=== PATIENT | male | born 1950 | race Caucasian/White ===

== ENCOUNTER 2021-03-03 12:31 | Outpatient (CLI) | payer MEDICARE, SELFPAY ==
--- NOTE | ~2021-03-03 | US_ITS ---
EXAMINATION: US soft tissue LE LT DATE: 03/03/2021 12:55 INDICATION: Left lower limb mass. TECHNIQUE: Multiple grayscale and Doppler ultrasound images of the left lower limb were obtained. COMPARISON: None FINDINGS: There is an 8.3 x 2.4 x 6.7 cm Webb's cyst in the patient's area of concern. IMPRESSION: 1. Large left-sided Webb's cyst. Reviewed, dictated and finalized at location A.
== END 2021-03-03 12:32 | disposition home or self-care (01) ==
PROVIDERS: PCP Family Medicine; Visit Provider Physician Assistant
DX: M71.22 Synovial cyst of popliteal space [Baker], left knee (principal)
CPT/HCPCS: 76882

== ENCOUNTER 2021-10-18 00:50 | Day surgery (SDC) | payer MEDICARE, SELFPAY ==
[2021-10-03 14:56] VITALS: BMI 38.5
[2021-10-18 06:58] VITALS: BP 136/70; PULSE 84; RESP 19; TEMP 36.6; O2SAT 96
[2021-10-18] MEDS: LACTATED RINGERS 1,000 ML 150 ML IV CONT (07:07)
--- NOTE | 2021-10-18 07:08 | WPDANESEPPF ---
Anes - Initial Pre Proc Eval Procedure: Operation Date: 10/18/21 08:00 Proposed Procedures p Screening Colonoscopy - Ton Maurice MD Date/Time: 10/18/21 07:08 Surgeon: Ton Maurice MD Pre Op Diagnosis: hx of colon polyps Patient Data Age: 70 Gender: M Height: 1.91 m Weight: 140.8 kg Last Vital Signs Temp 36.6 C 10/18/21 06:58 Pulse 84 10/18/21 06:58 Resp 19 10/18/21 06:58 BP 136/70 10/18/21 06:58 Pulse Ox 96 10/18/21 06:58 Allergies Allergy/AdvReac Type Severity Reaction Status Date / Time lisinopril Allergy Unknown Cough Verified 10/18/21 06:57 naproxen Allergy Unknown Rash Verified 10/18/21 06:57 Home Medications Medication Instructions Recorded Confirmed Type glucosamine HCl 1,500 mg tablet 1,500 mg PO DAILY 08/12/20 10/03/21 History rosuvastatin 5 mg tablet 5 mg PO DAILY #90 tablet 08/11/21 10/03/21 Rx tadalafil 10 mg tablet 10 mg PO DAILY PRN #90 tablet 08/11/21 10/03/21 Rx valsartan 160 1 tablet PO DAILY #90 tablet 08/11/21 10/03/21 Rx mg-hydrochlorothiazide 12.5 mg tablet ibuprofen [Advil] 200 mg PO BID 10/03/21 10/03/21 History Patient hx anesthesia problems: none Family hx anesthesia problems: none Results Review: All pre-operative results and documents have been reviewed as part of the pre-operative evaluation. [facility] Past Medical History Medical History BPH (benign prostatic hyperplasia) Erectile dysfunction Hypertension Mixed hyperlipidemia Osteoarthritis of knees, bilateral Surgical History Surgical History H/O exploratory laparotomy History of incisional hernia repair Family History Family History Mother Carcinoma of colon Family history of heart disease in male family member before age 55 Family history of malignant neoplasm of breast in first degree relative Family history of cardiovascular disease, Onset Age: 68 Father Family history of malignant neoplasm, Onset Age: 78 Family history of malignant melanoma Malignant neoplasm of prostate Social History Social History Social History: Smoking packs per day: 2 Smoking cigarettes per day: 40.0 Years smoked: 10 Smoking pack-years: 20.00 Smoking status: Former smoker Tobacco type: cigarettes Second hand tobacco smoke exposure: No Smoking end date: 08/27/75 Alcohol intake: current Drinks per week: 4 Substance use: never Substance use type: does not use Gender identity (if verbalized by the patient): Male Sexual Orientation (if Verbalized by the Patient): Straight or Heterosexual Anes - Eval Final PreProcedure Day of Procedure 10/18/21 07:08 Patient weight: obese Heart: regular rate and rhythm Lungs: decreased breath sounds Airway: Mallampati scale class II Neurological: alert and oriented Last oral intake: >/= 8 hours ASA classification: III Emergent: no Anesthetic plan: proceed Anesthesia type and monitoring: general GIVS and standard monitoring Results Review: All pre-operative results and documents have been reviewed as part of the pre-operative evaluation. Informed Consent: The patient's anesthetic plan and its attendant risks and benefits were discussed with the patient/family/POA. Questions were solicited and answers provided to the satisfaction of the patient/family/POA.
--- NOTE | 2021-10-18 08:05 | PM.HPGS ---
History of Present Illness History of Present Illness Consent: Risks, benefits, and alternatives have been discussed and questions answered. Patient agrees to proceed with procedure. Chief complaint: hx of colon polyps Narrative: Aristeo Huizar is a 70 year old male with colon polyp in 2017 Review of Systems Constitutional: Constitutional: Denies headache(s) and Denies weakness Eyes: Eyes: Denies blurry vision ENT: Reports Normal hearing present, Denies headache(s) and Denies neck pain Cardiovascular: Cardiovascular: Denies chest pain and Denies dyspnea Respiratory: Respiratory: Denies dyspnea Gastrointestinal: Gastrointestinal: Reports no additional gastrointestinal complaints Genitourinary: Genitourinary: Denies dysuria Musculoskeletal: Musculoskeletal: Denies neck pain Integumentary/Breasts: Skin/Breast: Denies dry skin Neurologic: Reports Normal hearing present, Denies headache(s) and Denies weakness Psychiatric: Psychiatric: Denies anxiety Endocrine: Endocrine: Denies change in body appearance Hematologic/Lymphatic: Hematologic/Lymphatic: Denies easy bleeding Allergic/Immunologic: Allergic/Immunologic: Denies urticaria PMFSH Past Medical History Medical History BPH (benign prostatic hyperplasia) Erectile dysfunction Hypertension Mixed hyperlipidemia Osteoarthritis of knees, bilateral Surgical History Surgical History H/O exploratory laparotomy History of incisional hernia repair Family History Family History Mother Carcinoma of colon Family history of heart disease in male family member before age 55 Family history of malignant neoplasm of breast in first degree relative Family history of cardiovascular disease, Onset Age: 68 Father Family history of malignant neoplasm, Onset Age: 78 Family history of malignant melanoma Malignant neoplasm of prostate Social History Social History Social History: Smoking packs per day: 2 Smoking cigarettes per day: 40.0 Years smoked: 10 Smoking pack-years: 20.00 Smoking status: Former smoker Tobacco type: cigarettes Second hand tobacco smoke exposure: No Smoking end date: 08/27/75 Alcohol intake: current Drinks per week: 4 Substance use: never Substance use type: does not use Gender identity (if verbalized by the patient): Male Sexual Orientation (if Verbalized by the Patient): Straight or Heterosexual Meds Home Medications and Allergies Home Medications Medication Instructions Recorded Confirmed Type glucosamine HCl 1,500 mg tablet 1,500 mg PO DAILY 08/12/20 10/03/21 History rosuvastatin 5 mg tablet 5 mg PO DAILY #90 tablet 08/11/21 10/03/21 Rx tadalafil 10 mg tablet 10 mg PO DAILY PRN #90 tablet 08/11/21 10/03/21 Rx valsartan 160 1 tablet PO DAILY #90 tablet 08/11/21 10/03/21 Rx mg-hydrochlorothiazide 12.5 mg tablet ibuprofen [Advil] 200 mg PO BID 10/03/21 10/03/21 History Allergies Allergy/AdvReac Type Severity Reaction Status Date / Time lisinopril Allergy Unknown Cough Verified 10/18/21 06:57 naproxen Allergy Unknown Rash Verified 10/18/21 06:57 Vital Signs Vital Signs - 24 hr 10/18/21 06:58 Temperature 97.9 F Pulse Rate 84 Respiratory Rate 19 Blood Pressure 136/70 Pulse Oximetry 96 Exam Const: General: comfortable and no acute distress HENMT: General nose exam: Normal nares present Eyes: General: appearance normal, both eyes and all related structures Neck: Neck: no JVD Resp: Auscultation: clear to auscultation bilaterally Cardio: Rate: regular rate Rhythm: regular rhythm GI: Inspection: non-distended GI Palp: Yes Soft to palpation Skin: General skin exam: normal color Neuro: General: gait normal Speech: norm
[2021-10-18 08:32] VITALS: BP 117/58; PULSE 70; RESP 18; O2SAT 98
[2021-10-18 08:42] VITALS: BP 123/76; PULSE 62; RESP 20; O2SAT 98
[2021-10-18 08:52] VITALS: BP 124/72; PULSE 64; RESP 20; O2SAT 99
== END 2021-10-18 09:06 | disposition home or self-care (01) ==
PROVIDERS: PCP Family Medicine; Visit Provider Internal Medicine Gastroenterology
PROC: 0DJD8ZZ Inspection of Lower Intestinal Tract, Via Natural or Artificial Opening Endoscopic (ICD-10-PCS; CPT 45378; principal; 2021-10-18 08:00)
DX: Z12.11 Encounter for screening for malignant neoplasm of colon (principal); D12.2 Benign neoplasm of ascending colon; K57.30 Diverticulosis of large intestine without perforation or abscess without bleeding; K64.8 Other hemorrhoids; I10 Essential (primary) hypertension; E78.2 Mixed hyperlipidemia; N40.0 Benign prostatic hyperplasia without lower urinary tract symptoms; Z87.891 Personal history of nicotine dependence; E66.9 Obesity, unspecified; Z68.38 Body mass index [BMI] 38.0-38.9, adult
CPT/HCPCS: 45380; 88305; J2704; J7120

== ENCOUNTER 2022-05-24 10:09 | Outpatient (CLI) | payer MEDICARE, SELFPAY ==
[2022-05-24 10:44] LABS: Hemoglobin 14.8 g/dL (14.0-18.0)
--- NOTE | 2022-05-24 10:48 | ECG_ITS ---
Measurements Intervals [place] Rate: 60 P: 40 OR: 176 QRS: -54 QRSD: 145 T: -4 QT: 451 QTc: 453 Interpretive Statements SINUS RHYTHM LEFT AXIS DEVIATION DELAYED PRECORDIAL R/S TRANSITION INTRAVENTRICULAR CONDUCTION DELAY MINIMAL Q WAVES- HIGH LATERAL LEADS BORDERLINE T WAVE ABNORMALITY- INFERIOR LEADS BORDERLINE ECG NO PREVIOUS ECG AVAILABLE FOR COMPARISON Electronically Signed On 05-24-2022 11:34:22 CDT by Rebel Mckeon D.O.
[2022-05-24 11:01] LABS: Albumin Level 4.6 g/dL (3.5-5.1); Estimated Glomerular Filt Rate > 60; Glucose 99 mg/dL (65-110)
[2022-05-24 12:05] LABS: Urine Cotinine NEGATIVE
[2022-05-24 12:15] LABS: Hemoglobin A1C 5.2 % (<5.7)
== END 2022-05-24 10:10 | disposition home or self-care (01) ==
LOC: ANHLAB 10:16
PROVIDERS: PCP Family Medicine; Visit Provider Orthopaedic Surgery
DX: M17.12 Unilateral primary osteoarthritis, left knee (principal); E78.2 Mixed hyperlipidemia; I10 Essential (primary) hypertension; Z79.899 Other long term (current) drug therapy; Z01.818 Encounter for other preprocedural examination; I45.9 Conduction disorder, unspecified
CPT/HCPCS: 80307; 82040; 82565; 82947; 83036; 85014; 85018; 93005

== ENCOUNTER 2022-05-29 14:36 | Outpatient (CLI) | payer MEDICARE, SELFPAY ==
--- NOTE | ~2022-05-29 | CT_ITS ---
EXAMINATION: CT LE LT wo con DATE: 05/29/2022 15:05 INDICATION: Left knee osteoarthritis. TECHNIQUE: Computed tomography (CT) of the left lower limb was performed without intravenous contrast . Automated exposure control and iterative reconstruction technique were employed. The dose-length pr oduct was 1797.58 mGy-cm. COMPARISON: Left knee radiographs 03/20/2022 FINDINGS: Bone alignment is normal. No fracture. The left hip joint demonstrates moderate osteoarthri tis. The left knee demonstrates severe osteoarthritis of the lateral compartment and moderate osteoar thritis of the medial and patellofemoral compartments. There is a large Webb's cyst. There is a smal l knee joint effusion. IMPRESSION: 1. Severe left knee osteoarthritis. 2. Small left knee joint effusion. 3. Large left-sided Webb's cyst. 4. Moderate left hip osteoarthritis. Reviewed, dictated and finalized at location B.
== END 2022-05-29 14:37 | disposition home or self-care (01) ==
PROVIDERS: PCP Family Medicine; Visit Provider Orthopaedic Surgery
DX: M17.12 Unilateral primary osteoarthritis, left knee (principal); M25.462 Effusion, left knee; M71.22 Synovial cyst of popliteal space [Baker], left knee; M16.12 Unilateral primary osteoarthritis, left hip
CPT/HCPCS: 73700

== ENCOUNTER 2022-06-19 13:48 | Outpatient (CLI) | payer MEDICARE, SELFPAY ==
[2022-06-19 15:28] LABS: Basophils Percent Auto 0.5 % (0.2-1.2); Eosinophils Absolute Auto 0.1 K/mm3 (0-0.3); Hematocrit 40.6 % (42.0-52.0); Hemoglobin 14.2 g/dL (14.0-18.0); Immature Granulocyte Absolute 0.02 K/mm3 (0.00-0.031); Immature Granulocyte Percent A 0.3 % (0-0.5); Lymphocytes Absolute Auto 1.72 K/mm3 (0.9-3.2); Lymphocytes Percent Auto 21.9 % (18.3-44.2); Mean Corpuscular Hemoglobin 32.3 pg (26-34); Mean Corpuscular Volume 92.3 fl (80-100); Mean Platelet Volume 9.2 fl (7.4-10.4); Monocytes Absolute Auto 0.8 K/mm3 (0.1-0.6); Monocytes Percent Auto 9.6 % (2.6-8.5); Neutrophils Absolute Auto 5.2 K/mm3 (1.3-6.7); Neutrophils Percent Auto 66.7 % (45.5-73.1); Platelet Count Result 198 k/mm3 (150-375); Red Cell Distribution Width 12.3 % (11.5-14.5); White Blood Count 7.8 K/mm3 (4.5-10.0)
[2022-06-19 15:41] LABS: Anion Gap 12 mmol/L (8-16); Blood Urea Nitrogen 14 mg/dL (9-20); Calcium 8.8 mg/dL (8.4-10.2); Carbon Dioxide 27 mmol/L (22-30); Chloride 99 mmol/L (98-107); Estimated Glomerular Filt Rate > 60; Glucose 97 mg/dL (65-110); Potassium 3.6 mmol/L (3.4-5.0); Sodium 138 mmol/L (137-145)
== END 2022-06-19 13:49 | disposition home or self-care (01) ==
LOC: ANHSURGERY 13:53
PROVIDERS: Anesthesiology; PCP Family Medicine; Visit Provider Orthopaedic Surgery
DX: M17.12 Unilateral primary osteoarthritis, left knee (principal); Z79.899 Other long term (current) drug therapy; Z01.818 Encounter for other preprocedural examination
CPT/HCPCS: 36415; 80048; 85025; 87081

== ENCOUNTER 2022-07-18 01:22 | Day surgery (SDC) | payer MEDICARE, SELFPAY ==
--- NOTE | 2022-06-19 13:47 | PC.NURSE ---
PRE-OP INSTRUCTIONS, PLEASE READ CAREFULLY Report to the Outpatient Waiting Room, entrance under the green pavilion located off [facility], at time _0830_ on date _07/18/22_. Planned Procedure Time: _1030_. PACK A SMALL OVERNIGHT BAG AND LEAVE IN THE CAR Time changes happen often and if your time is changed the preop area will call you the afternoon before. - You and your visitor will be asked to self-screen and do not enter if you have any COVID symptoms. - We encourage only one visitor and NO visitors under age 16 are allowed at this time. Your visitor will receive communication by the phone number that is given day of service. - The patient visitor is requested to social distance or may leave the building when not with patient due to restrictions. - A mask is required within the hospital. -VISITING HOURS 8AM-8PM Patients may have clear liquids (water, carbonated beverages, clear teas, apple juice) until 3 hours prior to surgery (0730 AM) with a maximum of 20 ounces. - No food from midnight until time of surgery Take the following medications with a SIP of water the morning of surgery: _TYLENOL IF NEEDED_ Medications to discontinue per ANESTHESIA - _GLUCOSAMINE 3 DAYS PRIOR TO SURGERY, Date to take last dose 07/14/22_ Please no make-up, nail sinhala, hairspray, perfume, deodorant, or body powder the day of surgery. No jewelry (including any body piercings) or valuables the day of surgery, leave them at home. Please take a shower or bath the night before, or the morning of, surgery with an antibacterial soap. Wear comfortable, loose fitting clothing. - Jewelry must be removed prior to entering the operating room. Rings and piercings that are not removed may be cut off. - The hospital will not accept responsibility for valuables. - Please leave all valuables, including medications, at home the day of surgery. If you are going home after surgery, a licensed bung driver must drive you home. - NO public transportation without another adult. - We recommend that an adult stay with you for 24 hours following discharge. - We also recommend that you do not drive, make important decision, drink alcoholic beverages, or take any drugs that were not prescribed by your health care provider for at least 24 hours after your discharge time. Follow any additional instructions given to you from your surgeon. TOTAL JOINT CLASS 06/28/22 @ 1000 AM, [facility] ENTRANCE #2 - LOWER LEVEL If you or anyone in your household have experienced Covid symptoms in the past week, please notify your surgeon or the nurse liaison at the phone number below for possible testing. Instructions given to ____PT and asked if any additional questions and then verbalized understanding. Patient advised to call surgeon office or pre surgery nurse liaison [phone] if any additional questions.
[2022-06-19 14:04] VITALS: BP 130/72; PULSE 76; RESP 20; TEMP 37.1; O2SAT 97; BMI 38.2
--- NOTE | 2022-07-17 12:49 | WPDANESEPPF ---
Anes - Initial Pre Proc Eval Procedure: Operation Date: 07/18/22 07:30 Proposed Procedures p Left Custom Total Knee Arthroplasty - William Mcclellan MD Date/Time: 07/17/22 12:49 Surgeon: William Mcclellan MD Pre Op Diagnosis: primary OA left knee Patient Data Age: 71 Gender: M Height: 1.88 m Weight: 135.3 kg Last Vital Signs Temp 37.1 C 06/19/22 14:04 Pulse 76 06/19/22 14:04 Resp 20 06/19/22 14:04 BP 130/72 06/19/22 14:04 Pulse Ox 97 06/19/22 14:04 O2 Del Method Room Air 06/19/22 14:04 Allergies Allergy/AdvReac Type Severity Reaction Status Date / Time lisinopril Allergy Unknown Cough Verified 07/18/22 06:15 naproxen Allergy Unknown Rash Verified 07/18/22 06:15 Home Medications Medication Instructions Recorded Confirmed Type glucosamine HCl 1,500 mg tablet 1,500 mg PO DAILY 08/12/20 07/18/22 History tadalafil 10 mg tablet 10 mg PO DAILY PRN sexual activity 08/11/21 07/18/22 Rx #90 tabs acetaminophen 325 mg capsule 500 mg PO Q6H PRN Pain 03/20/22 07/18/22 History (Tylenol) rosuvastatin 5 mg tablet See Rx Instructions .Route 05/05/22 07/18/22 Rx .COMPLEX #90 tabs valsartan 160 1 tablet PO DAILY #90 tabs 05/09/22 07/18/22 Rx mg-hydrochlorothiazide 12.5 mg tablet ECG: Date of Service: 05/24/22 Procedure(s): CA 12 lead EKG Accession Number(s): [id number] cc: ~ ? Measurements Intervals? [place]? Rate: ? 60 ? P:? 40 ME: ? 176? QRS:? -54 QRSD: ? 145? T:? -4 QT: ? 451? QTc:? 453? Interpretive Statements SINUS RHYTHM LEFT AXIS DEVIATION DELAYED PRECORDIAL R/S TRANSITION INTRAVENTRICULAR CONDUCTION DELAY MINIMAL Q WAVES- HIGH LATERAL LEADS BORDERLINE T WAVE ABNORMALITY- INFERIOR LEADS BORDERLINE ECG NO PREVIOUS ECG AVAILABLE FOR COMPARISON Electronically Signed On 05-24-2022 11:34:22 CDT by Rebel Mckeon D.O. Patient hx anesthesia problems: none Family hx anesthesia problems: none Results Review: All pre-operative results and documents have been reviewed as part of the pre-operative evaluation. [facility] Past Medical History Medical History (Updated 07/17/22 @ 12:51 by Martinez Augustine MD) BPH (benign prostatic hyperplasia) Erectile dysfunction Hypertension Mixed hyperlipidemia Obesity Osteoarthritis of knees, bilateral Primary osteoarthritis of left knee Venous insufficiency (chronic) (peripheral) Surgical History Surgical History H/O exploratory laparotomy History of incisional hernia repair Family History Family History Mother Carcinoma of colon Family history of heart disease in male family member before age 55 Family history of malignant neoplasm of breast in first degree relative Family history of cardiovascular disease, Onset Age: 68 Father Family history of malignant neoplasm, Onset Age: 78 Family history of malignant melanoma Malignant neoplasm of prostate Social History Social History (Updated 06/28/22 @ 13:25 by Monet Landaverde MA) Social History: Smoking packs per day: 2 Smoking cigarettes per day: 40.0 Years smoked: 10 Smoking pack-years: 20.00 Smoking status: Former smoker Tobacco type: cigarettes Second hand tobacco smoke exposure: No Smoking end date: 08/27/75 Additional smoking assessment comments: PT STATES QUIT SMOKING IN THE 70'S), DENIES ALL FORMS OF TOBACCO USE Alcohol intake: current Drinks per week: 4 Substance use: never Substance use type: does not use Lack of Transportation: No Lack of Food: Never True Current Housing: I Have Housing Concerned About Future H
--- NOTE | 2022-07-17 12:51 | WPDANESPNB ---
Anes - Peripheral Nerve Block Date/Time: 07/17/22 12:51 I have discussed with the patient/family/POA the placement of a peripheral nerve block for post-operative pain management, including associated risks, benefits, complications, and side effects. Alternative methods of post-operative analgesia were detailed. Questions were solicited and answers provided to the satisfaction of the patient/family/POA. Time-Out: A pre-procedural Time-Out was completed immediately before starting the procedure and confirmed: Patient Identification, Site, Procedure, Patient Position and the Availability of Requisite Equipment. Clinical Indications: Acute post-operative pain management requested by the operative surgeon. Nerve Block Insertion Note Anes-nerve block: adductor canal left Patient position: supine Skin prep: chlorhexidine Needle: 22 gauge, stimulating, insulated echogenic needle. Needle length: 80 mm Technique: ultrasound Technique comment: in plane Injectate: bupivacaine 0.25% with epi 5 mcg/ml (30cc) Observations: tolerated well Complications: none Procedure start time:: 725 Procedure end time:: 730
[2022-07-18] VITALS (14 sets, daily range): BP systolic 123–153; BP diastolic 59–82; PULSE 67–94; RESP 12–20; TEMP 36.2–37.1; O2SAT 95–100
--- NOTE | ~2022-07-18 | XR_ITS ---
EXAMINATION: XR knee LT 2V DATE: 07/18/2022 10:52 SHEETER HELPER INDICATION: Left total knee arthroplasty TECHNIQUE: 2 views left knee FINDINGS: There is a left total knee arthroplasty in expected position. Subcutaneous gas with fluid and air in the joint are consistent with recent surgery. No evidence of periprosthetic fracture. IMPRESSION: 1. Recent left total knee arthroplasty. Reviewed, dictated and finalized at location B. TER HELPER
[2022-07-18] MEDS: LACTATED RINGERS 1,000 ML 30 ML IV CONT ×2 (06:40→10:15)
[2022-07-18] MEDS: ACETAMINOPHEN 500 MG TABLET 1000 MG PO (06:46)
[2022-07-18] MEDS: TRANEXAMIC ACID 1,000MG/ISO100 1,000 MG/100 ML BAG 200 MG IVPB (07:12)
--- NOTE | 2022-07-18 07:20 | WPDHPUPDATE1 ---
History and Physical Update Update Date/Time: 07/18/22 07:20 History and Physical has been reviewed, including an updated exam of the patient. There are NO changes in the patient's condition. Risks, benefits, and alternatives have been discussed and questions answered. Patient agrees to proceed with procedure.
[2022-07-18] MEDS: ceFAZolin 3 GM/D5W 100 ML 100 ML IVPB (07:45)
[2022-07-18] MEDS: GENTAMICIN BONE CEMENT REFOBACIN 1 EACH TOPICAL (08:14)
--- NOTE | 2022-07-18 10:08 | P.OP_ITS ---
Procedure Note - Detailed Date of Procedure 07/18/22 Pre-op Diagnosis primary OA left knee Post-op Diagnosis Same Procedure Performed Total knee arthroplasty, left. Surgeon William Mcclellan MD Contact Center Representative Cha Kelley PA-C Anesthesia General and Regional (Subsartorial block.) Findings Mild valgus deformity. Large stature. Moderate synovitis.. Good bone quality. No release required. Imprint PS semi-custom. Description of Procedure Preoperative antibiotics were given. The limb was prepped and draped in the usual sterile fashion with a well-padded tourniquet high on the thigh. The limb was exsanguinated and the tourniquet inflated to 300 mmHg. A longitudinal incision was created just medial to the patella. A trivector approach to the knee was performed. Arthrotomy was taken down through the joint capsule. No significant releases were initially taken. The femur was exposed and the F1 jig was applied. The coring tool was used to remove the cartilage for the F2 jig to sit flush with the bone. The jig was pinned and the distal cut carefully taken. Caliper measurements confirmed appropriate bony resections according to the preoperative templated plan. The F4 cutting jig for the femur was applied, at the standard rotation. The AP and anterior chamfer cuts were taken. The F5 jig was applied and the posterior chamfer cuts were taken, followed by the box cut. The PCL was released. The tibia was prepared using the T1 jig, after removing cartilage for the jig contact points. Proper alignment was checked with the alignment otis. The tibia was cut using the T1u guide. Gap balancing was performed. Gap measurements were taken and the knee was trialed. Excellent alignment and soft tissue balancing was confirmed. The posterior cruciate ligament was recessed along the proximal tibia. The patella was cut for resurfacing. Three lug holes were drilled. Meniscal remnants were removed. The trial components were assembled. Excellent range of motion and proper soft tissue balancing were confirmed throughout the full range of motion. Patellar tracking was excellent. The knee was copiously irrigated periodically throughout the procedure. The real implants were cemented into position. Excess cement was carefully removed. The wound was closed in layers with interrupted #1 Vicryl suture, 2-0 strata fix suture, 0 strata fix suture, 2-0 strata fix suture. Steri-Strips placed on the skin with the knee flexed. Sterile bulky dressing applied. The patient was brought to the recovery room in stable condition. There were no complications. Physician senior assistant manager, Cha Kelley PA-C, required for surgery; including patient positioning, draping, tissue retraction, maintaining instrument position, cement removal, wound closure, and dressing placement. Implants Conformis Imprint semi custom total knee arthroplasty. Size 7. Cemented. Posterior stabilized. 8mm insert. 38 mm round patella. Estimated Blood Loss 150 Drains No Complications No immediate complications Condition Stable Disposition PACU [facility] Billing Surgery - Charge Forward: Surgery Billing
[2022-07-18] MEDS: fentaNYL CITRATE INJ (*CRX) 100 MCG/2 ML VIAL 25 MCG IV PUSH ×4 (10:34→10:59)
--- NOTE | 2022-07-18 12:15 | ADMGEN ---
This patient, Aristeo Huizar, was admitted to 2 Medical Room 259-01. Patient/family oriented to hospital policies and general routines including ID bracelet, bed and alarms, visiting hours, pain management, procedures, bathroom and other care routines, personal items, smoking policy, room service/diet, and visiting hours. Information on how to activate the Rapid Response Team has been discussed. Patient/Family are encouraged to report perceived risks to care and to ask questions if they do not understand what they are told or what they should do.
[2022-07-18] MEDS: oxyCODONE HCL (*CRX) 5 MG TAB IR 10 MG PO (14:23)
[2022-07-18] MEDS: ceFAZolin 2 GM/D5W 50 ML 2 GM/50 ML BAG IVPB (15:12)
[2022-07-18] MEDS: SENNA/DOCUSATE SODIUM TABLET 2 TAB PO (16:04)
[2022-07-18] MEDS: ASPIRIN 81 MG ENTERIC TABLET PO (16:05)
[2022-07-18] MEDS: MELOXICAM 7.5 MG TABLET PO (16:05)
[2022-07-18] MEDS: FAMOTIDINE 20 MG TABLET PO (21:49)
[2022-07-18] MEDS: oxyCODONE HCL (*CRX) 5 MG TAB IR PO (22:55)
[2022-07-19 01:02] VITALS: BP 124/59; PULSE 73; RESP 16; TEMP 36.6; O2SAT 97
[2022-07-19] MEDS: ceFAZolin 2 GM/D5W 50 ML 2 GM/50 ML BAG IVPB ×2 (01:05→09:19)
[2022-07-19 06:04] LABS: Basophils Percent Auto 0.2 % (0.2-1.2); Hematocrit 35.8 % (42.0-52.0); Hemoglobin 12.2 g/dL (14.0-18.0); Immature Granulocyte Absolute 0.06 K/mm3 (0.00-0.031); Immature Granulocyte Percent A 0.5 % (0-0.5); Lymphocytes Absolute Auto 1.06 K/mm3 (0.9-3.2); Lymphocytes Percent Auto 8.8 % (18.3-44.2); Mean Corpuscular HGB Conc 34.1 g/dl (32-36); Mean Corpuscular Hemoglobin 32.9 pg (26-34); Mean Corpuscular Volume 96.5 fl (80-100); Mean Platelet Volume 9.6 fl (7.4-10.4); Monocytes Absolute Auto 1.6 K/mm3 (0.1-0.6); Monocytes Percent Auto 13.6 % (2.6-8.5); Neutrophils Absolute Auto 9.2 K/mm3 (1.3-6.7); Neutrophils Percent Auto 76.9 % (45.5-73.1); Platelet Count Result 188 k/mm3 (150-375); Red Blood Count 3.71 M/mm3 (4.6-6.20); Red Cell Distribution Width 12.1 % (11.5-14.5)
[2022-07-19 06:18] LABS: Anion Gap 10 mmol/L (8-16); Blood Urea Nitrogen 15 mg/dL (9-20); Calcium 8.1 mg/dL (8.4-10.2); Carbon Dioxide 24 mmol/L (22-30); Chloride 101 mmol/L (98-107); Estimated CRCL calculation 141 ml/min; Estimated Glomerular Filt Rate > 60; Glucose 133 mg/dL (65-110); Potassium 3.6 mmol/L (3.4-5.0); Sodium 135 mmol/L (137-145)
[2022-07-19 06:31] VITALS: BP 127/56; PULSE 70; RESP 14; TEMP 36.4; O2SAT 97
[2022-07-19] MEDS: oxyCODONE HCL (*CRX) 5 MG TAB IR 10 MG PO (07:35)
[2022-07-19] MEDS: ASPIRIN 81 MG ENTERIC TABLET PO (09:20)
[2022-07-19] MEDS: hydroCHLOROthiazide 12.5 MG CAPSULE PO (09:20)
[2022-07-19] MEDS: predniSONE 5 MG TABLET PO (09:20)
[2022-07-19] MEDS: SENNA/DOCUSATE SODIUM TABLET 2 TAB PO (09:20)
[2022-07-19] MEDS: MELOXICAM 7.5 MG TABLET PO (09:21)
[2022-07-19] MEDS: VALSARTAN 160 MG TABLET PO (09:21)
[2022-07-19] MEDS: polyethylene glycoL 3350 17 GM POWD.PACK PO (09:21)
[2022-07-19] MEDS: ROSUVASTATIN 5 MG TABLET PO (09:21)
[2022-07-19] MEDS: FAMOTIDINE 20 MG TABLET PO (09:21)
--- NOTE | 2022-07-19 09:47 | PM.DS ---
DS: Admitting Diagnosis Discharge Date 07/19/22 Admitting Diagnosis OA knee Left DS: Discharge Diagnosis Discharge Diagnosis (1) Status post total left knee replacement: Code(s): Z96.652 - Presence of left artificial knee joint Status: Acute Assessment and Plan: Postop day 1: Left total knee arthroplasty. Patient tolerated procedure well. No complications. Pain manageable with pain medication. No numbness or tingling. We had a lengthy discussion regarding postoperative wound care, limitations, expectations, and exercises. Patient shows good understanding. He has had initial physical therapy and is tolerating it well. DVT prophylaxis: 81 mg baby aspirin b.i.d. for 14 days. Pain medication: Percocet. Meloxicam. Prednisone. Patient has followup appointment with Dr. Mcclellan in 3 weeks. DS: Summary Hospital Course Reason for hospitalization: Total knee arthroplasty Hospital Course: Patient tolerated procedure well. Has had initial PT/OT. Status at Discharge Functional status at discharge: uses cane/walker Overall status at discharge: patient is progressing back to baseline Time Spent with Patient Time attestation: Total time spent providing and/or coordinating discharge services: Exam Narrative: Overweight 71 y/o male. Resting comfortably in chair. Alert and oriented x3. No acute distress. Wearing compression socks bilaterally. Dressing intact without drainage. Moderate swelling. No ecchymosis. No erythema. No hematoma. Range of motion limited due to pain. Calf nontender. Neurologic status intact. No varicosities. Distal pulses palpable. DS: Data Data Completed and Pending Labs on day of discharge: Labs from last 24 hours 07/19/22 07/19/22 05:26 05:26 WBC 12.0 H RBC 3.71 L Hgb 12.2 L Hct 35.8 L MCV 96.5 MCH 32.9 MCHC 34.1 RDW 12.1 Plt Count 188 MPV 9.6 Immature Gran % (Auto) 0.5 Neut % (Auto) 76.9 H Lymph % (Auto) 8.8 L [place] % (Auto) 13.6 H Eos % (Auto) 0.0 Baso % (Auto) 0.2 Lymph # (Auto) 1.06 [place] # (Auto) 1.6 H Eos # (Auto) 0.0 Baso # (Auto) 0.0 Abs Immat Gran (auto) 0.06 H Absolute Neuts (auto) 9.2 H Absolute Nucleated RBC 0.0 Nucleated RBC % 0.0 Sodium 135 L Potassium 3.6 Chloride 101 Carbon Dioxide 24 Anion Gap 10 BUN 15 Creatinine 0.60 L Estim Creat Clear Calc 141 Estimated GFR > 60 Glucose 133 H Calcium 8.1 L Discharge Plan Discharge Patient Disposition: Home, Self-Care Discharge Instructions: See green instructions sheets Patient Instructions: Joint Replacement Surgery (DC), Knee Replacement (DC) Stand Alone Forms: General Discharge Instructions Follow-up/Referrals: Cha Kelley PA [Physician Position Classifier] - Discharge Medications: New meloxicam 15 mg tablet 15 mg PO DAILY Qty: 30 0RF Rx Instructions: Cut in half. Take 1/2 in morning and 1/2 at night. Take with food. Stop if stomach upset. prednisone 5 mg tablet 5 mg PO DAILY 21 Days Qty: 21 0RF aspirin 81 mg tablet,delayed release (DR/EC) 81 mg PO BID 14 Days Qty: 28 0RF oxycodone-acetaminophen 5-325 mg tablet 1 - 2 tablet PO Q4-6H MDD 6 PRN (Reason: pain) Qty: 30 0RF Continued glucosamine HCl 1,500 mg tablet 1,500 mg PO DAILY Rx Instructions: administer with a meal tadalafil 10 mg tablet 10 mg PO DAILY PRN (Reason: sexual activity) Qty: 90 1RF Rx Instructions: administer approximately 30min before sexual activity; do not use more than 1 dose per 24hrs acetaminophen [Tylenol] 325 mg capsule 500 mg PO Q6H PRN (Reason: Pain) rosuvastatin 5 mg tablet See Rx Instructions .ROUTE .COMPLEX Qty: 90 1RF Dose Instruction: Take 1 tablet by mouth once daily Rx Instructions: Take 1 tablet by mouth once daily valsartan-hydrochlorothiazide 160-12.5 mg tablet 1 tablet PO DAILY Qty: 90 1RF
[2022-07-19 10:49] VITALS: BP 124/57; PULSE 69; RESP 16; TEMP 36.9; O2SAT 93
[2022-07-19] MEDS: oxyCODONE HCL (*CRX) 5 MG TAB IR PO (12:34)
== END 2022-07-19 12:36 | disposition home or self-care (01) ==
LOC: ANHSURGERY 05:59 → ANH2MED 11:46
PROVIDERS: Physician Assistant Surgical; PCP Family Medicine; Visit Provider Orthopaedic Surgery
PROC: (CPT 27447; principal; 2022-07-18 07:30)
DX: M17.12 Unilateral primary osteoarthritis, left knee (principal); M65.862 Other synovitis and tenosynovitis, left lower leg; G89.18 Other acute postprocedural pain; I10 Essential (primary) hypertension; E78.2 Mixed hyperlipidemia; I87.2 Venous insufficiency (chronic) (peripheral); N40.0 Benign prostatic hyperplasia without lower urinary tract symptoms; E66.9 Obesity, unspecified; Z68.38 Body mass index [BMI] 38.0-38.9, adult; Z87.891 Personal history of nicotine dependence
CPT/HCPCS: 27447; 64447; 36415; 73560; 80048; 85025; 86850; 86900; 86901; 97110; 97116; 97161; 97165; 97530; 97535; A9270; C1713; C1776; J0131; J0171; J0690; J1100; J1170; J2250; J2270; J2405; J2704; J2795; J3010; J7120; J7512

== ENCOUNTER 2023-05-28 10:33 | Outpatient (CLI) | payer MEDICARE, SELFPAY ==
--- NOTE | ~2023-05-28 | CT_ITS ---
EXAMINATION: CT LE RT wo con DATE: 05/28/2023 11:26 INDICATION: Right knee osteoarthritis. Preop planning. TECHNIQUE: Computed tomography (CT) of the right lower limb was performed without intravenous contras t. Automated exposure control and iterative reconstruction technique were employed. The dose-length p roduct was 1959.34 mGy-cm. COMPARISON: Right knee radiographs 01/31/23 FINDINGS: The right hip joint is not included. Right knee demonstrates severe osteoarthritis of the m edial and patellofemoral compartments and mild osteoarthritis of the lateral compartment. There is a small knee joint effusion. Vascular calcifications are noted. IMPRESSION: 1. Severe right knee osteoarthritis. 2. Small right knee joint effusion. 3. Right hip joint not included. Reviewed, dictated and finalized at location E.
== END 2023-05-28 10:34 | disposition home or self-care (01) ==
LOC: ANHIMG 10:35
PROVIDERS: PCP Family Medicine; Visit Provider Orthopaedic Surgery
DX: M17.11 Unilateral primary osteoarthritis, right knee (principal); M25.461 Effusion, right knee
CPT/HCPCS: 73700

== ENCOUNTER 2023-05-31 10:26 | Outpatient (CLI) | payer MEDICARE, SELFPAY ==
--- NOTE | 2023-05-31 11:00 | ECG_ITS ---
Measurements Intervals [place] Rate: 72 P: 30 CO: 203 QRS: -50 QRSD: 153 T: 20 QT: 428 QTc: 470 Interpretive Statements SINUS RHYTHM WITH MARKED SINUS ARRHYTHMIA INTRAVENTRICULAR CONDUCTION DELAY [130+ ms QRS DURATION] COMPARED TO ECG 05/24/2022 11:02:12 SINUS ARRHYTHMIA NOW PRESENT Electronically Signed On 05-31-2023 12:47:46 CDT by Tracy Diop M.D.
[2023-05-31 11:17] LABS: Hematocrit 42.3 % (42.0-52.0); Hemoglobin 14.4 g/dL (14.0-18.0)
[2023-05-31 11:26] LABS: Albumin Level 4.4 g/dL (3.5-5.1); Estimated Glomerular Filt Rate > 60; Glucose 94 mg/dL (65-110)
[2023-05-31 11:37] LABS: Urine Cotinine NEGATIVE
[2023-05-31 12:03] LABS: Hemoglobin A1C 5.2 % (<5.7)
== END 2023-05-31 10:27 | disposition home or self-care (01) ==
LOC: ANHLAB 10:29
PROVIDERS: PCP Family Medicine; Visit Provider Orthopaedic Surgery
DX: R73.9 Hyperglycemia, unspecified (principal); E78.2 Mixed hyperlipidemia; I10 Essential (primary) hypertension; M17.11 Unilateral primary osteoarthritis, right knee; Z79.899 Other long term (current) drug therapy; Z87.891 Personal history of nicotine dependence; I87.2 Venous insufficiency (chronic) (peripheral); Z68.41 Body mass index [BMI] 40.0-44.9, adult; I45.9 Conduction disorder, unspecified
CPT/HCPCS: 80307; 82040; 82565; 82947; 83036; 85014; 85018; 93005

== ENCOUNTER 2023-06-05 07:30 | Outpatient (RCR) | payer MEDICARE, SELFPAY ==
--- NOTE | 2023-04-18 09:00 | OTOPEVAL1 ---
Assessment and note entered by CONSTANCE Corey/Sally, CHT Evaluation Information Assessment Status Evaluation Diagnosis Left cubital tunnel syndrome Subjective Information Patient reports experiencing consistent symptoms around June 2022. He notices that he has been having difficulties with typing and using the small finger. Reports gross weakness of the left UE. He reports constant paresthesias. He is right handed. Reported Pain Level Pain Score 0: Self Report Additional Pain Score Comments Reporting no pain, just an annoyance. Assessment OT Clinical Summary Patient referred to outpatient OT with dx of cubital tunnel syndrome. Patient presents with sensory deficits in the small and ulnar half of the ring finger, intrinsic muscle weakness, and positive Froment's Sign. Skilled OT indicated to reduce signs of ulnar neuropathy and to improve functional strength of the left UE/hand. Plan of Care Interventions Therapeutic Exercise,Manual Therapy,Neuro Re- education,Therapeutic Activities,Hot Pack/Cold Pack,Paraffin OT Services Indicated Yes Treatment Frequency and 1x/week for 4 weeks Duration These treatments will address the objective and functional deficits as defined above. The patient will be advanced safely and appropriately in order for the patient to progress towards his/her prior level of function. Additional exercises will be introduced and as well as a comprehensive home exercise program upon discharge, if needed, ?to ensure carryover of functional gains achieved in the clinic. This treatment plan has been reviewed and agreement upon by the patient.
--- NOTE | 2023-04-18 09:00 | OPREHPOC ---
Outpatient Therapy Plan of Care This is a Multidisciplinary Plan of Care that may contain components documented by all disciplines (PT, OT, and ST.) OT Problem 1 OT Problem #1 Knowledge Deficit OT Goal 1 Goal 1. Patient to be independent with instructed materials. Target Visit 5 OT Problem 2 OT Problem #2 Impaired Sensation OT Goal 1 Goal 1. Patient to test in normal ranges on the SWMF test on the left hand. Target Visit 5 OT Problem 3 OT Problem #3 Impaired Strength OT Goal 1 Goal 1. Patient to increase left lateral pinch strength to 14 lbs. 2. Patient to increase left palmar pinch strength to 10 lbs. Target Visit 5
--- NOTE | 2023-05-08 08:11 | OTOPPROG ---
Assessment and note entered by Gustavo Coughlin, CONSTANCE/Sally, CHT Evaluation Information Assessment Status Progress Diagnosis Left cubital tunnel syndrome Subjective Information Patient reports since starting therapy he has noticed improvements with typing and using the small finger. 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 He was experiencing constant paresthesias and now he states there are times of no tingling. He states most of the time it's very mild and he is able to forget about it. He reports he is more mindful of his UE positioning with ADLs and when at rest to help with reduced nerve compression and irritation. Strength measurements remained unchanged. He continues to complete a lateral pinch with thumb IP flexion. [place]-Ludiv[place] monofilament test and 2-point discrimination are now measuring normal for the ulnar nerve distribution on the left hand. Assessment OT Clinical Summary Patient referred to outpatient OT with dx of cubital tunnel syndrome. He has been participating in therapy x3 weeks and is demonstrating progress with reduced symptoms. Sensation tests improved to normal limits today. He continues to have residual weakness in the intrinsics with a positive Froment's Sign. Plan - Patient to continue his HEP for another 4 weeks and then follow up for a final reassessment. He is in agreement with this and reports excellent understanding of his HEP. Plan of Care Interventions Therapeutic Exercise,Manual Therapy,Neuro Re- education,Therapeutic Activities,Hot Pack/Cold Pack,Paraffin OT Services Indicated Yes Treatment Frequency and Follow up in 4 weeks Duration These treatments will address the objective and functional deficits as defined above. The patient will be advanced safely and appropriately in order for the patient to progress towards his/her prior level of function. Additional exercises will be introduced and as well as a comprehensive home exercise program upon discharge, if needed, ?to ensure carryover of functional gains achieved in the clinic. This treatment plan has been reviewed and agreement upon by the patient.
--- NOTE | 2023-05-08 08:11 | OPREHPOC ---
Outpatient Therapy Plan of Care This is a Multidisciplinary Plan of Care that may contain components documented by all disciplines (PT, OT, and ST.) OT Problem 1 OT Problem #1 Knowledge Deficit OT Goal 1 Goal 1. Patient to be independent with instructed materials. ---OT POC UPDATE 05/08/23-- 1. Met, continue as HEP is progressed Target Visit 5 OT Problem 2 OT Problem #2 Impaired Sensation OT Goal 1 Goal 1. Patient to test in normal ranges on the SWMF test on the left hand. ---OT POC UPDATE 05/08/23-- 1. Met Target Visit 5 OT Problem 3 OT Problem #3 Impaired Strength OT Goal 1 Goal 1. Patient to increase left lateral pinch strength to 14 lbs. 2. Patient to increase left palmar pinch strength to 10 lbs. ---OT POC UPDATE 05/08/23-- 1. Not met, continue 2. Not met, continue Target Visit 5
--- NOTE | 2023-06-05 08:13 | OTOPDC ---
Assessment and note entered by Gustavo Coughlin, CONSTANCE/Sally, T Discharge Summary 06/05/23 Diagnosis Left cubital tunnel syndrome Subjective Information Patient reports continued progress with the left UE. He states he is doing better with typing and is feeling stronger. He reports the paresthesias are getting better, but that he continues to have intermittent tingling. He states most of the time it's very mild and he is able to forget about it. He reports he is more mindful of his UE positioning with ADLs and when at rest to help with reduced nerve compression and irritation. He does note an instance of the elbow locking up about a week ago. He was pushing himself up from a chair when he felt a sudden, sharp pain and then the elbow wouldn't straighten. He reports this subsided after a few minutes. Strength measurements remained unchanged. He is doing better with keeping the thumb IP straight with lateral pinch. [place]-Ludivina monofilament test and 2-point discrimination continue to measuring normal for the ulnar nerve distribution on the left hand. Reported Pain Level Pain Score 0: Self Report Assessment OT Clinical Summary Patient referred to outpatient OT with dx of cubital tunnel syndrome. Sensation tests continue to measure WNL. 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 to 106 lbs. Lateral and palmar pinches continue to be below normal limits at 7 and 6 lbs. respectfully. He is currently independent with all education - elbow positioning to reduce nerve compression, nerve glides, and strengthening. Plan to discharge the patient today with a progress plateau. Educated on continuing all of the HEPs and to follow up with MD if symptoms do not resolve . He is getting a knee replacement next month and would like to focus on that and maintain the elbow HEP. Plan of Care OT Services Indicated No
== END 2023-06-05 13:51 | disposition home or self-care (01) ==
LOC: ANHOT 07:30
PROVIDERS: PCP Family Medicine; Visit Provider Plastic Surgery
DX: G56.20 Lesion of ulnar nerve, unspecified upper limb (principal)
CPT/HCPCS: 97110; 97140; 97166

== ENCOUNTER 2023-07-02 11:55 | Outpatient (CLI) | payer MEDICARE, SELFPAY ==
[2023-07-02 12:54] LABS: Basophils Absolute Auto 0.1 K/mm3 (0.0-0.1); Basophils Percent Auto 0.7 % (0.2-1.2); Eosinophils Absolute Auto 0.1 K/mm3 (0-0.3); Eosinophils Percent Auto 1.1 % (0-4.4); Hematocrit 42.5 % (42.0-52.0); Hemoglobin 14.7 g/dL (14.0-18.0); Immature Granulocyte Absolute 0.01 K/mm3 (0.00-0.031); Immature Granulocyte Percent A 0.1 % (0-0.5); Lymphocytes Absolute Auto 1.39 K/mm3 (0.9-3.2); Lymphocytes Percent Auto 18.6 % (18.3-44.2); Mean Corpuscular HGB Conc 34.6 g/dl (32-36); Mean Corpuscular Hemoglobin 32.2 pg (26-34); Mean Corpuscular Volume 93.2 fl (80-100); Mean Platelet Volume 9.3 fl (7.4-10.4); Monocytes Absolute Auto 0.7 K/mm3 (0.1-0.6); Monocytes Percent Auto 9.9 % (2.6-8.5); Neutrophils Absolute Auto 5.2 K/mm3 (1.3-6.7); Neutrophils Percent Auto 69.6 % (45.5-73.1); Platelet Count Result 193 k/mm3 (150-375); Red Blood Count 4.56 M/mm3 (4.6-6.20); Red Cell Distribution Width 12.2 % (11.5-14.5); White Blood Count 7.5 K/mm3 (4.5-10.0)
[2023-07-02 13:04] LABS: Anion Gap 7 mmol/L (8-16); Blood Urea Nitrogen 14 mg/dL (9-20); Carbon Dioxide 28 mmol/L (22-30); Chloride 100 mmol/L (98-107); Estimated Glomerular Filt Rate > 60; Glucose 96 mg/dL (65-110); Potassium 3.8 mmol/L (3.4-5.0); Sodium 135 mmol/L (137-145)
== END 2023-07-02 11:56 | disposition home or self-care (01) ==
LOC: ANHSURGERY 12:02
PROVIDERS: Anesthesiology; PCP Family Medicine; Visit Provider Orthopaedic Surgery
DX: Z01.818 Encounter for other preprocedural examination (principal); M17.11 Unilateral primary osteoarthritis, right knee; Z79.899 Other long term (current) drug therapy
CPT/HCPCS: 36415; 80048; 85025; 87081

== ENCOUNTER 2023-07-24 01:52 | Day surgery (SDC) | payer MEDICARE, SELFPAY ==
--- NOTE | 2023-07-02 11:53 | PC.NURSE ---
PRE-OP INSTRUCTIONS, PLEASE READ CAREFULLY Report to the Outpatient Waiting Room, entrance under the green pavilion located off [facility], at time _1030_ on date _07/24/23_. Planned Procedure Time: _1230_. PACK A SMALL OVERNIGHT BAG AND LEAVE IT IN THE CAR ALONG WITH YOUR WALKER Time changes happen often and if your time is changed the preop area will call you the afternoon before. - You and your visitor will be asked to self-screen and do not enter if you have any COVID symptoms. - A mask is optional within the hospital at this time. -VISITING HOURS 8AM-8PM Patients may have clear liquids (water, carbonated beverages, clear teas, apple juice) until 3 hours prior to surgery (0930 AM) with a maximum of 20 ounces. - No food from midnight until time of surgery Take the following medications with a SIP of water the morning of surgery: _TYLENOL IF NEEDED_ DO NOT STOP ANY OF YOUR OTHER PRESCRIPTION MEDICATIONS PRIOR TO SURGERY ?EXCEPT THE FOLLOWING Medications to discontinue per ANESTHESIA - _OSTEO BI-FLEX 3 DAYS PRIOR TO SURGERY, Date to take last dose 07/20/23_ Please no make-up, nail [place], hairspray, perfume, deodorant, or body powder the day of surgery. No jewelry (including any body piercings) or valuables the day of surgery, leave them at home. Please take a shower or bath the night before, or the morning of, surgery with an antibacterial soap. Wear comfortable, loose fitting clothing. - Jewelry must be removed prior to entering the operating room. Rings and piercings that are not removed may be cut off. - The hospital will not accept responsibility for valuables. - Please leave all valuables, including medications, at home the day of surgery. If you are going home after surgery, a licensed driver examiner must drive you home. - NO public transportation without another adult if you receive anesthesia. - We recommend that an adult stay with you for 24 hours following discharge. - We also recommend that you do not drive, make important decision, drink alcoholic beverages, or take any drugs that were not prescribed by your health care provider for at least 24 hours after your discharge time. Follow any additional instructions given to you from your surgeon. If you or anyone in your household have experienced Covid symptoms in the past week, please notify your surgeon or the nurse liaison at the phone number below for possible testing. Instructions given to _PATIENT & SPOUSE_and asked if any additional questions and then verbalized understanding. Patient advised to call surgeon office or pre surgery nurse liaison [phone] if any additional questions.
[2023-07-02 12:18] VITALS: BP 124/70; PULSE 64; RESP 20; TEMP 36.7; O2SAT 97; BMI 38.6
--- NOTE | 2023-07-23 14:38 | WPDANESEPPF ---
Anes - Initial Pre Proc Eval Procedure: Operation Date: 07/24/23 07:30 Proposed Procedures p Right Custom Total Knee Arthroplasty - William Mcclellan MD Date/Time: 07/23/23 14:38 Surgeon: William Mcclellan MD Pre Op Diagnosis: primary OA right knee Patient Data Age: 72 Gender: M Height: 1.88 m Weight: 136.5 kg Last Vital Signs Temp 36.7 C 07/02/23 12:18 Pulse 64 07/02/23 12:18 Resp 20 07/02/23 12:18 BP 124/70 07/02/23 12:18 Pulse Ox 97 07/02/23 12:18 O2 Del Method Room Air 07/02/23 12:18 Allergies Allergy/AdvReac Type Severity Reaction Status Date / Time lisinopril Allergy Unknown Cough Verified 07/24/23 06:10 naproxen Allergy Unknown Rash Verified 07/24/23 06:10 Home Medications Medication Instructions Recorded Confirmed Type acetaminophen 325 mg capsule 500 mg PO Q6H PRN Pain 03/20/22 07/24/23 History (Tylenol) tadalafil 10 mg tablet 10 mg PO DAILY PRN sexual activity 08/30/22 07/03/23 Rx #90 tabs rosuvastatin 5 mg tablet See Rx Instructions .Route 04/27/23 07/24/23 Rx .COMPLEX #90 tabs valsartan 160 See Rx Instructions .Route 04/27/23 07/24/23 Rx mg-hydrochlorothiazide 12.5 mg .COMPLEX #90 tabs tablet glucosamine 750 qa-hehsbqipchw-bcu 1 tablet PO DAILY 07/02/23 07/24/23 History no1 644 mg-C 30 mg-jazzy 1 mg tablet (Osteo Bi-Flex Triple Strength) aspirin 81 mg tablet,delayed 81 mg PO BID 14 days #28 tabs 07/24/23 Rx release meloxicam 15 mg tablet 15 mg PO DAILY #30 tabs 07/24/23 Rx prednisone 5 mg tablet 5 mg PO DAILY 3 weeks #21 tabs 07/24/23 Rx Patient hx anesthesia problems: none Family hx anesthesia problems: none Results Review: All pre-operative results and documents have been reviewed as part of the pre-operative evaluation. FOR[facility] Past Medical History Medical History BPH (benign prostatic hyperplasia) Erectile dysfunction Hypertension Mixed hyperlipidemia Obesity Osteoarthritis of knees, bilateral Primary osteoarthritis of left knee Venous insufficiency (chronic) (peripheral) Surgical History Surgical History H/O exploratory laparotomy History of incisional hernia repair History of left knee replacement (~07/18/22) Family History Family History Mother Carcinoma of colon Family history of heart disease in male family member before age 55 Family history of malignant neoplasm of breast in first degree relative Family history of cardiovascular disease, Onset Age: 68 Father Family history of malignant neoplasm, Onset Age: 78 Family history of malignant melanoma Malignant neoplasm of prostate Social History Social History Social History: Smoking packs per day: 2 Smoking cigarettes per day: 40.0 Years smoked: 10 Smoking pack-years: 20.00 Smoking status: Former smoker Tobacco type: cigarettes Second hand tobacco smoke exposure: No Additional smoking assessment comments: PT STATES QUIT SMOKING - DENIES ALL FORMS OF TOBACCO USE Alcohol intake: current Drinks per week: 4 Alcohol use details: 2-3/WEEK Substance use: never Substance use type: does not use Lack of Transportation: No Lack of Food: Never True Current Housing: I Have Housing Concerned About Future Housing: No Difficulty Paying Gas/Electric Bills: No Difficulty Paying for Meds: No Currently Unemployed: No Education: High School Diploma/GED Difficulty w/ Childcare or Family Care: No Living arrangements: with family Occupation/Education: retired Additional occupation/education comments: 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
[2023-07-24] VITALS (15 sets, daily range): BP systolic 119–142; BP diastolic 57–84; PULSE 73–110; RESP 12–23; TEMP 36.2–36.9; O2SAT 92–98
--- NOTE | ~2023-07-24 | XR_ITS ---
EXAMINATION: XR_[id number]_CR DATE: 07/24/2023 10:22 INDICATION: Total right knee arthroplasty. Postop. TECHNIQUE: 2 views of right knee were obtained. COMPARISON: None. FINDINGS: There is a total right knee arthroplasty with patellar resurfacing in near-anatomic alignme nt. No fracture. There is gas in the soft tissues and knee joint, consistent with recent surgery. IMPRESSION: 1. Total right knee arthroplasty in near-anatomic alignment. Reviewed, dictated and finalized at location A. RADIATION THERAPIST
[2023-07-24] MEDS: ACETAMINOPHEN 500 MG TABLET 1000 MG PO ×4 (06:24→23:24)
[2023-07-24] MEDS: LACTATED RINGERS 1,000 ML 30 ML IV CONT ×2 (06:30→10:02)
[2023-07-24] MEDS: TRANEXAMIC ACID 1,000MG/ISO100 1,000 MG/100 ML BAG 200 MG IVPB (07:14)
--- NOTE | 2023-07-24 07:15 | WPDHPUPDATE1 ---
History and Physical Update Update Date/Time: 07/24/23 07:15 History and Physical has been reviewed, including an updated exam of the patient. There are NO changes in the patient's condition. Risks, benefits, and alternatives have been discussed and questions answered. Patient agrees to proceed with procedure.
--- NOTE | 2023-07-24 07:28 | WPDANESPNB ---
Anes - Peripheral Nerve Block Date/Time: 07/24/23 07:28 I have discussed with the patient/family/POA the placement of a peripheral nerve block for post-operative pain management, including associated risks, benefits, complications, and side effects. Alternative methods of post-operative analgesia were detailed. Questions were solicited and answers provided to the satisfaction of the patient/family/POA. Time-Out: A pre-procedural Time-Out was completed immediately before starting the procedure and confirmed: Patient Identification, Site, Procedure, Patient Position and the Availability of Requisite Equipment. Clinical Indications: Acute post-operative pain management requested by the operative surgeon. Nerve Block Insertion Note Anes-nerve block: adductor canal right Patient position: supine Skin prep: chlorhexidine Needle: 22 gauge, stimulating, insulated echogenic needle. Needle length: 80 mm Technique: ultrasound Injectate: bupivacaine 0.5% with epi 5 mcg/ml (30cc - no epi) Observations: tolerated well Complications: none Procedure start time:: 719 Procedure end time:: 722
[2023-07-24] MEDS: ceFAZolin 3 GM/D5W 100 ML 100 ML IVPB (07:30)
[2023-07-24] MEDS: GENTAMICIN BONE CEMENT REFOBACIN 1 EACH TOPICAL (09:14)
--- NOTE | 2023-07-24 09:54 | W.PM.PROC2 ---
Procedure Note - Detailed Date of Procedure 07/24/23 Pre-op Diagnosis primary OA right knee Post-op Diagnosis Same Procedure Performed Total knee arthroplasty, right. Surgeon William Mcclellan MD Chart Changer Cha Kelley PA-C Anesthesia General and Regional (Subsartorial block.) Findings Large stature. Excellent bone quality. Moderate release with slight needle release. Description of Procedure Preoperative antibiotics were given. The limb was prepped and draped in the usual sterile fashion with a well-padded tourniquet high on the thigh. The limb was exsanguinated and the tourniquet inflated to 300 mmHg. A longitudinal incision was created just medial to the patella. A trivector approach to the knee was performed. Arthrotomy was taken down through the joint capsule. No significant releases were initially taken. The femur was exposed and the F1 jig was applied. The coring tool was used to remove the cartilage for the F2 jig to sit flush with the bone. The jig was pinned and the distal cut carefully taken. Caliper measurements confirmed appropriate bony resections according to the preoperative templated plan. The F4 cutting jig for the femur was applied, at the standard rotation. The AP and anterior chamfer cuts were taken. The F5 jig was applied and the posterior chamfer cuts were taken. The tibia was prepared using the T1 jig, after removing cartilage for the jig contact points. Proper alignment was checked with the alignment otis. The tibia was cut using the T1u guide. Gap balancing was performed. Gap measurements were taken and the knee was trialed. Excellent alignment and soft tissue balancing was confirmed. The posterior cruciate ligament was recessed along the proximal tibia. The patella was cut for resurfacing. Three lug holes were drilled. Meniscal remnants were removed. The trial components were assembled. Excellent range of motion and proper soft tissue balancing were confirmed throughout the full range of motion. Patellar tracking was excellent. The knee was copiously irrigated periodically throughout the procedure. The real implants were cemented into position. Excess cement was carefully removed. The wound was closed in layers with interrupted #1 Vicryl suture, #2 strata fix suture, 2-0 strata fix suture, 3-0 strata fix suture. Steri-Strips placed on the skin with the knee flexed. Sterile bulky dressing applied. The patient was brought to the recovery room in stable condition. There were no complications. Physician mailing machine assistant, Cha Kelley PA-C, required for surgery; including patient positioning, draping, tissue retraction, maintaining instrument position, cement removal, wound closure, and dressing placement. Implants Conformis Imprint total knee arthroplasty. Cemented. Cruciate retaining. 6 mm insert. 41 mm oval patella. Estimated Blood Loss 50 Drains No Complications No immediate complications Condition Stable Disposition PACU [facility] Billing Surgery - Charge Forward: Surgery Billing
[2023-07-24] MEDS: SODIUM CHLORIDE 0.9% IV 1,000 ML 125 ML IV CONT (11:29)
--- NOTE | 2023-07-24 11:58 | ADMGEN ---
This patient, Aristeo Huizar, was admitted to 3 [facility] Surg Room 309-01. Patient/family oriented to hospital policies and general routines including ID bracelet, bed and alarms, visiting hours, pain management, procedures, bathroom and other care routines, personal items, smoking policy, room service/diet, and visiting hours. Information on how to activate the Rapid Response Team has been discussed. Patient/Family are encouraged to report perceived risks to care and to ask questions if they do not understand what they are told or what they should do. Report from Renee in pacu.
[2023-07-24] MEDS: oxyCODONE HCL (*CRX) 5 MG TAB IR PO ×3 (14:57→23:25)
[2023-07-24] MEDS: ceFAZolin 2 GM/D5W 50 ML 2 GM/50 ML BAG IVPB ×2 (14:59→23:25)
[2023-07-24] MEDS: MELOXICAM 7.5 MG TABLET PO (16:30)
[2023-07-24] MEDS: SENNA/DOCUSATE SODIUM TABLET 2 TAB PO (16:30)
[2023-07-24] MEDS: ASPIRIN 81 MG ENTERIC TABLET PO (16:31)
[2023-07-24] MEDS: FAMOTIDINE 20 MG TABLET PO (21:15)
[2023-07-25 00:05] VITALS: BP 120/62; PULSE 83; RESP 15; TEMP 36.6; O2SAT 97
[2023-07-25] MEDS: ACETAMINOPHEN 500 MG TABLET 1000 MG PO (04:20)
[2023-07-25 04:26] VITALS: BP 114/69; PULSE 87; RESP 16; TEMP 36.6; O2SAT 97
[2023-07-25 06:16] LABS: Basophils Percent Auto 0.3 % (0.2-1.2); Eosinophils Percent Auto 0.2 % (0-4.4); Hematocrit 36.3 % (42.0-52.0); Hemoglobin 12.1 g/dL (14.0-18.0); Immature Granulocyte Absolute 0.04 K/mm3 (0.00-0.031); Immature Granulocyte Percent A 0.5 % (0-0.5); Lymphocytes Absolute Auto 0.88 K/mm3 (0.9-3.2); Mean Corpuscular HGB Conc 33.3 g/dl (32-36); Mean Corpuscular Hemoglobin 32.2 pg (26-34); Mean Corpuscular Volume 96.5 fl (80-100); Mean Platelet Volume 9.9 fl (7.4-10.4); Monocytes Absolute Auto 1.4 K/mm3 (0.1-0.6); Monocytes Percent Auto 15.5 % (2.6-8.5); Neutrophils Absolute Auto 6.5 K/mm3 (1.3-6.7); Neutrophils Percent Auto 73.5 % (45.5-73.1); Platelet Count Result 171 k/mm3 (150-375); Red Blood Count 3.76 M/mm3 (4.6-6.20); Red Cell Distribution Width 12.2 % (11.5-14.5); White Blood Count 8.8 K/mm3 (4.5-10.0)
[2023-07-25 06:31] LABS: Anion Gap 10 mmol/L (8-16); Blood Urea Nitrogen 21 mg/dL (9-20); Carbon Dioxide 24 mmol/L (22-30); Chloride 100 mmol/L (98-107); Estimated CRCL calculation 108 ml/min; Estimated Glomerular Filt Rate > 60; Glucose 143 mg/dL (65-110); Potassium 3.6 mmol/L (3.4-5.0); Sodium 134 mmol/L (137-145)
[2023-07-25 08:00] VITALS: BP 134/64; PULSE 90; RESP 16; TEMP 36.3; O2SAT 98
--- NOTE | 2023-07-25 08:04 | PM.DS ---
DS: Admitting Diagnosis Discharge Date 07/25/23 Admitting Diagnosis OA knee Right DS: Discharge Diagnosis Discharge Diagnosis (1) Status post total right knee replacement: Code(s): Z96.651 - Presence of right artificial knee joint Status: Acute Assessment and Plan: Postop day 1: Right total knee arthroplasty. Patient tolerated procedure well. No complications. Pain manageable with pain medication. No numbness or tingling. We had a lengthy discussion regarding postoperative wound care, limitations, expectations, and exercises. Patient shows good understanding. He has had initial physical therapy and is tolerating it well. DVT prophylaxis: 81 mg baby aspirin b.i.d. for 14 days. Pain medication: Percocet. Patient has followup appointment with Dr. Mcclellan in 3 weeks. DS: Summary Hospital Course Reason for hospitalization: Total knee arthroplasty Hospital Course: Patient tolerated procedure well. Has had initial PT/OT. No complications. Pain well managed. Status at Discharge Functional status at discharge: uses cane/walker Overall status at discharge: patient is progressing back to baseline Time Spent with Patient Time attestation: Total time spent providing and/or coordinating discharge services: Exam Narrative: overweight 72 y/o Male. Resting comfortably in bed. No acute distress. A&O x3. Wearing compression socks bilaterally. Dressing intact with no drainage. Moderate swelling. Mild ecchymosis medially. No erythema. No hematoma. Good early range of motion. Calf nontender. Neurologic status intact. No varicosities. Distal pulses palpable. DS: Data Data Completed and Pending Labs on day of discharge: Labs from last 24 hours 07/25/23 05:37 WBC 8.8 RBC 3.76 L Hgb 12.1 L Hct 36.3 L MCV 96.5 MCH 32.2 MCHC 33.3 RDW 12.2 Plt Count 171 MPV 9.9 Immature Gran % (Auto) 0.5 Neut % (Auto) 73.5 H Lymph % (Auto) 10.0 L [place] % (Auto) 15.5 H Eos % (Auto) 0.2 Baso % (Auto) 0.3 Lymph # (Auto) 0.88 L [place] # (Auto) 1.4 H Eos # (Auto) 0.0 Baso # (Auto) 0.0 Abs Immat Gran (auto) 0.04 H Absolute Neuts (auto) 6.5 Absolute Nucleated RBC 0.0 Nucleated RBC % 0.0 Sodium 134 L Potassium 3.6 Chloride 100 Carbon Dioxide 24 Anion Gap 10 BUN 21 H Creatinine 0.80 Estim Creat Clear Calc 108 Estimated GFR > 60 Glucose 143 H Calcium 8.0 L Discharge Plan Discharge Patient Disposition: Home, Self-Care Discharge Instructions: See green instruction sheets Stand Alone Forms: General Discharge Instructions Follow-up/Referrals: Cha Kelley PA [Physician Silverware Buffer] - Discharge Medications: New meloxicam 15 mg tablet 15 mg PO DAILY Qty: 30 0RF Rx Instructions: Cut in half. Take 1/2 in morning and 1/2 at night. Take with food. Stop if stomach upset. prednisone 5 mg tablet 5 mg PO DAILY 21 Days Qty: 21 0RF aspirin 81 mg tablet,delayed release (DR/EC) 81 mg PO BID 14 Days Qty: 28 0RF Continued tadalafil 10 mg tablet 10 mg PO DAILY PRN (Reason: sexual activity) Qty: 90 1RF Rx Instructions: administer approximately 30min before sexual activity; do not use more than 1 dose per 24hrs Osteo Bi-Flex Triple Strength 750 mg-644 mg- 30 mg-1 mg Tablet 1 tablet PO DAILY valsartan-hydrochlorothiazide 160-12.5 mg tablet See Rx Instructions .ROUTE .COMPLEX Qty: 90 1RF Dose Instruction: Take 1 tablet by mouth once daily Rx Instructions: Take 1 tablet by mouth once daily rosuvastatin 5 mg tablet See Rx Instructions .ROUTE .COMPLEX Qty: 90 1RF Dose Instruction: Take 1 tablet by mouth once daily Rx Instructions: Take 1 tablet by mouth once daily Held acetaminophen [Tylenol] 325 mg capsule 500 mg PO Q6H PRN (Reason: Pain) Hold Instructions: Resume on 07/31/23. do not take more than 3,000 mg in 24 hours. Pain meds have tylenol in it.
[2023-07-25] MEDS: polyethylene glycoL 3350 17 GM POWD.PACK PO (08:10)
[2023-07-25] MEDS: SENNA/DOCUSATE SODIUM TABLET 2 TAB PO (08:10)
[2023-07-25] MEDS: FAMOTIDINE 20 MG TABLET PO (08:11)
[2023-07-25] MEDS: predniSONE 5 MG TABLET PO (08:11)
[2023-07-25] MEDS: oxyCODONE HCL (*CRX) 5 MG TAB IR PO (08:11)
[2023-07-25] MEDS: ASPIRIN 81 MG ENTERIC TABLET PO (08:11)
[2023-07-25] MEDS: ROSUVASTATIN 5 MG TABLET PO (08:11)
[2023-07-25] MEDS: MELOXICAM 7.5 MG TABLET PO (08:11)
--- NOTE | 2023-07-25 09:02 | WPDANESPN ---
Anes - Prog Note Post-Op Date/Time: 07/25/23 09:02 Cardiovascular status: normal Respiratory status: normal Airway patency: baseline Mental status: baseline Post-Op hydration status: normal Vital Signs: Last Vital Signs Temp 36.3 C L 07/25/23 08:00 Pulse 90 07/25/23 08:00 Resp 16 07/25/23 08:00 BP 134/64 07/25/23 08:00 Pulse Ox 98 07/25/23 08:00 O2 Del Method Room Air 07/24/23 13:08 O2 Flow Rate 2 07/24/23 11:10 Pain Score (VAS): 2 I/O: Intake & Output 07/24/23 07/25/23 07/25/23 23:59 07:59 15:59 Intake Total 590 300 Balance 590 300 Laboratory Tests 07/25/23 05:37 07/25/23 05:37 07/25/23 05:37 WBC 8.8 RBC 3.76 L Hgb 12.1 L Hct 36.3 L MCV 96.5 MCH 32.2 MCHC 33.3 RDW 12.2 Plt Count 171 MPV 9.9 Immature Gran % (Auto) 0.5 Neut % (Auto) 73.5 H Lymph % (Auto) 10.0 L [place] % (Auto) 15.5 H Eos % (Auto) 0.2 Baso % (Auto) 0.3 Lymph # (Auto) 0.88 L [place] # (Auto) 1.4 H Eos # (Auto) 0.0 Baso # (Auto) 0.0 Abs Immat Gran (auto) 0.04 H Absolute Neuts (auto) 6.5 Absolute Nucleated RBC 0.0 Nucleated RBC % 0.0 Sodium 134 L Potassium 3.6 Chloride 100 Carbon Dioxide 24 Anion Gap 10 BUN 21 H Creatinine 0.80 Estim Creat Clear Calc 108 Estimated GFR > 60 Glucose 143 H Calcium 8.0 L Post-procedural complaints: none Patient Feedback: Patient satisfied with anesthetic care.
[2023-07-25] MEDS: ceFAZolin 2 GM/D5W 50 ML 2 GM/50 ML BAG IVPB (09:03)
== END 2023-07-25 11:10 | disposition home or self-care (01) ==
LOC: ANHSURGERY 07:13 → ANH3MEDSUR 11:06
PROVIDERS: Physician Assistant Surgical; PCP Family Medicine; Visit Provider Orthopaedic Surgery
PROC: (CPT 27447; principal; 2023-07-24 07:30)
DX: M17.11 Unilateral primary osteoarthritis, right knee (principal); I10 Essential (primary) hypertension; E78.2 Mixed hyperlipidemia; G89.18 Other acute postprocedural pain; N40.0 Benign prostatic hyperplasia without lower urinary tract symptoms; N52.9 Male erectile dysfunction, unspecified; I87.2 Venous insufficiency (chronic) (peripheral); E66.9 Obesity, unspecified; Z68.39 Body mass index [BMI] 39.0-39.9, adult; Z79.82 Long term (current) use of aspirin; Z96.652 Presence of left artificial knee joint; Z87.891 Personal history of nicotine dependence; Z82.49 Family history of ischemic heart disease and other diseases of the circulatory system; Z80.3 Family history of malignant neoplasm of breast; Z80.8 Family history of malignant neoplasm of other organs or systems; Z80.0 Family history of malignant neoplasm of digestive organs; Z80.42 Family history of malignant neoplasm of prostate
CPT/HCPCS: 27447; 64447; 36415; 73560; 80048; 85025; 86850; 86900; 86901; 97110; 97116; 97161; 97165; 97530; 97535; A9270; C1713; C1776; J0171; J0690; J1100; J1170; J2250; J2270; J2405; J2704; J2795; J3010; J7030; J7120; J7512

== ENCOUNTER 2023-08-12 07:44 | Outpatient (CLI) | payer MEDICARE, SELFPAY ==
--- NOTE | ~2023-08-12 | XR_ITS ---
XR knee RT min 4V 08/12/2023 08:06 Indication: Right knee pain Procedure: 4 views right knee Comparison: No prior studies for comparison. Findings: There is a right total knee arthroplasty. Prosthesis well seated. No fracture or traumatic malalignment. No significant joint effusion. Impression: 1: No acute bone or joint abnormality. Reviewed, dictated and finalized at location A. TER CLERK TRACTOR PARTS Impression: 1: No acute bone or joint abnormality.
== END 2023-08-12 07:45 | disposition home or self-care (01) ==
LOC: ANHIMG 07:47
PROVIDERS: PCP Family Medicine; Visit Provider Orthopaedic Surgery
DX: Z47.1 Aftercare following joint replacement surgery (principal); Z96.651 Presence of right artificial knee joint
CPT/HCPCS: 73564

== ENCOUNTER 2023-11-22 07:56 | Outpatient (CLI) | payer MEDICARE, SELFPAY ==
[2023-11-22 08:34] LABS: Anion Gap 6 mmol/L (4-12); Blood Urea Nitrogen 16 mg/dL (9-20); Calcium 9.2 mg/dL (8.4-10.2); Carbon Dioxide 30 mmol/L (22-30); Chloride 102 mmol/L (98-107); Estimated Glomerular Filt Rate > 60; Glucose 101 mg/dL (65-110); Potassium 4.3 mmol/L (3.4-5.0); Sodium 138 mmol/L (137-145)
== END 2023-11-22 07:57 | disposition home or self-care (01) ==
LOC: ANHSURGERY 08:00
PROVIDERS: Anesthesiology; PCP Family Medicine; Visit Provider Orthopaedic Surgery
DX: Z01.818 Encounter for other preprocedural examination (principal); I10 Essential (primary) hypertension
CPT/HCPCS: 36415; 80048

== ENCOUNTER 2023-11-27 01:43 | Day surgery (SDC) | payer MEDICARE, SELFPAY ==
--- NOTE | 2023-11-16 14:52 | PC.NURSE ---
Report to the Outpatient Waiting Room, entrance under the green pavilion located off [facility], at time _1100 on date __11/27/23 . Planned Procedure Time: __1300 . Time changes happen often and if your time is changed the preop area will call you the afternoon before. - You and your visitor will be asked to self-screen and do not enter if you have any COVID symptoms. - A mask is optional within the hospital at this time. Patients may have clear liquids (water, carbonated beverages, clear teas, apple juice) until 3 hours prior to surgery( 10 AM) with a maximum of 20 ounces. - No food from midnight until time of surgery - Infants may have breast milk until 4 hours before surgery, infant formula 6 hours prior to surgery. - Children will be allowed to drink immediately following surgery. If applicable, please bring a bottle or sippy cup to assist with drinking. Juice, water, soda, and popsicles are readily available. For infants on formula, please bring formula the day of surgery. Pacifiers are allowed. Take the following medications with a SIP of water the morning of surgery: ___NONE DO NOT STOP ANY OF YOUR OTHER PRESCRIPTION MEDICATIONS PRIOR TO SURGERY ?EXCEPT THE FOLLOWING Medications to discontinue per physician HOLD VITAMINS 3 DAYS PRE OP PER ANESTHESIA LAST DOSE 11/23/23 Please no make-up, nail [place], hairspray, perfume, deodorant, or body powder the day of surgery. No jewelry (including any body piercings) or valuables the day of surgery, leave them at home. Please take a shower or bath the night before, or the morning of, surgery with an antibacterial soap. Wear comfortable, loose fitting clothing. Children are encouraged to wear pajamas. - Jewelry must be removed prior to entering the operating room. Rings and piercings that are not removed may be cut off. - The hospital will not accept responsibility for valuables. - Please leave all valuables, including medications, at home the day of surgery. If you are going home after surgery, a licensed automobile drivers must drive you home. - NO public transportation without another adult if you receive anesthesia. - We recommend that an adult stay with you for 24 hours following discharge. - We also recommend that you do not drive, make important decision, drink alcoholic beverages, or take any drugs that were not prescribed by your health care provider for at least 24 hours after your discharge time. Follow any additional instructions given to you from your surgeon. If you or anyone in your household have experienced Covid symptoms in the past week, please notify your surgeon or the nurse liaison at the phone number below for possible testing. Telephone instructions given to __PATIENT and asked if any additional questions and then verbalized understanding. Patient advised to call surgeon office or pre surgery nurse liaison [phone] if any additional questions.
[2023-11-16 15:00] VITALS: BMI 39.8
[2023-11-27] VITALS (7 sets, daily range): BP systolic 132–153; BP diastolic 70–88; PULSE 60–83; RESP 12–20; TEMP 36.1–36.8; O2SAT 97–100
[2023-11-27] MEDS: ACETAMINOPHEN 500 MG TABLET 1000 MG PO (11:04)
--- NOTE | 2023-11-27 11:15 | SUR.PREOP ---
Minor scrape wound left outer arm near elbow which he says he did last 11-22-2023. Notified OR room 7 Heath to question if this was a concern for doing surgery.
--- NOTE | 2023-11-27 11:54 | WPDHPUPDATE1 ---
History and Physical Update Update Date/Time: 11/27/23 11:54 History and Physical has been reviewed, including an updated exam of the patient. There are NO changes in the patient's condition. Risks, benefits, and alternatives have been discussed and questions answered. Patient agrees to proceed with procedure. Small abrasion at the lateral elbow is healing appropriately. Okay to proceed with surgery.
[2023-11-27] MEDS: LACTATED RINGERS 1,000 ML 30 ML IV CONT (11:55)
--- NOTE | 2023-11-27 12:07 | WPDANESEPPF ---
Anes - Initial Pre Proc Eval Procedure: Operation Date: 11/27/23 13:00 Proposed Procedures p Left Cubital Tunnel Release - William Mcclellan MD Date/Time: 11/27/23 12:07 Surgeon: William Mcclellan MD Pre Op Diagnosis: Lt Cubital Tunnel Synd Patient Data Age: 72 Gender: M Height: 1.88 m Weight: 141.6 kg Last Vital Signs Temp 36.8 C 11/27/23 11:14 Pulse 73 11/27/23 11:14 Resp 16 11/27/23 11:14 BP 145/88 H 11/27/23 11:14 Pulse Ox 97 11/27/23 11:14 O2 Del Method Room Air 11/27/23 11:14 Allergies Allergy/AdvReac Type Severity Reaction Status Date / Time lisinopril Allergy Unknown Cough Verified 11/27/23 11:02 naproxen Allergy Unknown Rash Verified 11/27/23 11:02 Home Medications Medication Instructions Recorded Confirmed Type acetaminophen 325 mg capsule 500 mg PO Q6H PRN Pain 03/20/22 11/16/23 History (Tylenol) tadalafil 10 mg tablet 10 mg PO DAILY PRN sexual activity 09/10/23 11/16/23 Rx #90 tabs rosuvastatin 5 mg tablet See Rx Instructions .Route 10/17/23 11/16/23 Rx .COMPLEX #90 tabs valsartan 160 See Rx Instructions .Route 10/17/23 11/16/23 Rx mg-hydrochlorothiazide 12.5 mg .COMPLEX #90 tabs tablet uueuikrj-iahnkrkj-qhszy acid 400 1 tablet PO DAILY 11/16/23 11/16/23 History mcg-vit K 20 mcg-lycop 300 mcg tablet hydrocodone 5 mg-acetaminophen 325 1 - 2 tablet PO Q4-6H PRN pain #30 11/27/23 Rx mg tablet tabs Patient hx anesthesia problems: none Family hx anesthesia problems: none Results Review: All pre-operative results and documents have been reviewed as part of the pre-operative evaluation. [facility] Past Medical History Medical History BPH (benign prostatic hyperplasia) Erectile dysfunction Hypertension Mixed hyperlipidemia Obesity Osteoarthritis of knees, bilateral Primary osteoarthritis of left knee Venous insufficiency (chronic) (peripheral) Surgical History Surgical History H/O exploratory laparotomy History of incisional hernia repair History of left knee replacement (~07/18/22) Family History Family History Mother Carcinoma of colon Family history of heart disease in male family member before age 55 Family history of malignant neoplasm of breast in first degree relative Family history of cardiovascular disease, Onset Age: 68 Father Family history of malignant neoplasm, Onset Age: 78 Family history of malignant melanoma Malignant neoplasm of prostate Social History Social History Social History: Smoking packs per day: 2 Smoking cigarettes per day: 40.0 Years smoked: 10 Smoking pack-years: 20.00 Smoking status: Former smoker Tobacco type: cigarettes Second hand tobacco smoke exposure: No Smoking end date: 08/27/74 Additional smoking assessment comments: PT STATES QUIT SMOKING - DENIES ALL FORMS OF TOBACCO USE Alcohol intake: current Drinks per week: 2 Alcohol use details: 2-3/WEEK Substance use: never Substance use type: does not use Lack of Transportation: No Lack of Food: Never True Current Housing: I Have Housing Concerned About Future Housing: No Difficulty Paying Gas/Electric Bills: No Difficulty Paying for Meds: No Currently Unemployed: No Education: Don't Know Difficulty w/ Childcare or Family Care: No Living arrangements: with family Occupation/Education: retired Additional occupation/education comments: 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
[2023-11-27] MEDS: ceFAZolin 3 GM/D5W 100 ML 100 ML IVPB (12:18)
[2023-11-27] MEDS: BUPIVACAINE/EPINEPHRINE 0.5% 30 ML VIAL 10 ML INFILTRATE (13:00)
--- NOTE | 2023-11-27 13:42 | W.PM.PROC2 ---
Procedure Note - Detailed Date of Procedure 11/27/23 Pre-op Diagnosis Lt Cubital Tunnel Syndrome Post-op Diagnosis Same Procedure Performed Left 1. Cubital tunnel decompression Surgeon William Mcclellan MD Stewardess Supervisor Cha Mackay PA-C Anesthesia General Findings Moderate congestion noted at the cubital tunnel. Description of Procedure General anesthetic was administered. The tourniquet was inflated to 250 mmHg. A longitudinal incision was created posterior to the medial epicondyle. Careful dissection was brought down to the ulnar nerve. It was identified proximally and dissected to the cubital tunnel retinaculum. Careful dissection released the cubital tunnel retinaculum. The dissection was carried out to the flexor carpi the palmaris. The 1st motor branch was carefully identified and protected. Attention was turned proximally in the nerve was released proximal to the intermuscular septum. The arm was flexed and the nerve was assessed. The nerve was stable. The course of the nerve was very nice without evidence of compression or instability. The tourniquet was released. Meticulous hemostasis was maintained. The subcutaneous tissues were closed with interrupted 3-0 Monocryl suture followed by running 4-0 Monocryl suture and Steri-Strips. Sterile dressing was applied with a soft splint. The patient was extubated and brought to the recovery room in stable condition. Estimated Blood Loss 1 Pathology None sent Complications No immediate complications Condition Stable Disposition PACU [facility] Billing Surgery - Charge Forward: Surgery Billing
== END 2023-11-27 14:54 | disposition home or self-care (01) ==
PROVIDERS: PCP Family Medicine; Visit Provider Orthopaedic Surgery
PROC: (CPT 64721; principal; 2023-11-27 13:00)
DX: G56.22 Lesion of ulnar nerve, left upper limb (principal); I10 Essential (primary) hypertension; E78.2 Mixed hyperlipidemia; N40.0 Benign prostatic hyperplasia without lower urinary tract symptoms; N52.9 Male erectile dysfunction, unspecified; I87.2 Venous insufficiency (chronic) (peripheral); E66.01 Morbid (severe) obesity due to excess calories; Z68.41 Body mass index [BMI] 40.0-44.9, adult; Z98.890 Other specified postprocedural states; Z79.891 Long term (current) use of opiate analgesic; Z87.891 Personal history of nicotine dependence; Z80.0 Family history of malignant neoplasm of digestive organs; Z80.3 Family history of malignant neoplasm of breast; Z80.42 Family history of malignant neoplasm of prostate; Z82.49 Family history of ischemic heart disease and other diseases of the circulatory system
CPT/HCPCS: 64718; A4565; A9270; J0690; J1100; J2405; J2704; J7120

== ENCOUNTER 2025-02-18 08:10 | Outpatient (CLI) | payer MEDICARE, SELFPAY ==
[2025-02-18 19:00] LABS: Basophils Percent Auto 0.5 % (0.2-1.2); Eosinophils Absolute Auto 0.1 K/mm3 (0-0.3); Hemoglobin 14.2 g/dL (14.0-18.0); Immature Granulocyte Absolute 0.01 K/mm3 (0.00-0.031); Immature Granulocyte Percent A 0.1 % (0-0.5); Lymphocytes Absolute Auto 1.34 K/mm3 (0.9-3.2); Lymphocytes Percent Auto 18.2 % (18.3-44.2); Mean Corpuscular Hemoglobin 31.3 pg (26-34); Mean Corpuscular Volume 94.9 fl (80-100); Mean Platelet Volume 10.4 fl (7.4-10.4); Monocytes Absolute Auto 0.7 K/mm3 (0.1-0.6); Monocytes Percent Auto 9.5 % (2.6-8.5); Neutrophils Absolute Auto 5.2 K/mm3 (1.3-6.7); Neutrophils Percent Auto 70.7 % (45.5-73.1); Platelet Count Result 195 k/mm3 (150-375); Red Blood Count 4.53 M/mm3 (4.6-6.20); Red Cell Distribution Width 12.5 % (11.5-14.5); White Blood Count 7.4 K/mm3 (4.5-10.0)
[2025-02-18 19:22] LABS: Alanine Aminotransferase 16 U/L (6-50); Albumin Level 4.2 g/dL (3.5-5.1); Alkaline Phosphatase 53 U/L (38-126); Anion Gap 9 mmol/L (4-12); Aspartate Amino Transferase 29 U/L (17-59); Bilirubin,Total 0.8 mg/dL (0.2-1.3); Blood Urea Nitrogen 18 mg/dL (9-20); Calcium 9.1 mg/dL (8.4-10.2); Carbon Dioxide 26 mmol/L (22-30); Chloride 105 mmol/L (98-107); Cholesterol 137 mg/dL (0-200); Estimated Glomerular Filt Rate > 60; Glucose 91 mg/dL (65-110); HDL Direct 38 mg/dL; Potassium 3.8 mmol/L (3.4-5.0); Sodium 140 mmol/L (137-145); Total Protein 6.8 g/dL (6.3-8.2); Triglycerides 101 mg/dL (<150)
[2025-02-18 19:33] LABS: LDL Cholesterol Direct 69 mg/dL
[2025-02-18 19:55] LABS: Prostate Specific Antigen 3.3 ng/mL (< OR = 4.0)
== END 2025-02-18 08:11 | disposition home or self-care (01) ==
PROVIDERS: PCP Family Medicine; Visit Provider Student in an Organized Health Care Education/Training Program
DX: E78.5 Hyperlipidemia, unspecified (principal); I10 Essential (primary) hypertension; Z12.5 Encounter for screening for malignant neoplasm of prostate
CPT/HCPCS: 36415; 80053; 80061; 84153; 85025; G0103

== ENCOUNTER 2025-06-09 09:17 | Outpatient (CLI) | payer MEDICARE, SELFPAY ==
--- OUTSIDE RECORDS SUMMARY | 2025-06-09 10:18 | XMS_ITS | Clinical Summary ---
Author Organization [facility] Address [address], [facility] [address] [place] [address] Phone Care Team Providers Care Health Center Manager Name Role Phone Vicki Pearson MD Primary Care Provider [phone] Allergies Active Allergy Reactions Criticality Noted Date Comments Naproxen Unknown 12/15/2016 Medications polyethylene glycol (MIRALAX) Powder Use entire 255g bottle with 64oz of clear liquid as directed for colonoscopy prep. 255 g 0 7 Active ibuprofen (ADVIL) 200 MG Tablet Take 200 mg by mouth every 8 hours as needed. Active Family History Medical History Relation Name Comments Leukemia/Lymphoma Father Melanoma Father Prostate Cancer Father Breast Cancer Mother Colon Cancer Mother Breast Cancer Sister Relation Name Status Comments Father Mother Sister Social History Tobacco Use Types Packs/Day Years Used Date Smoking Tobacco: Former Cigarettes 2.5 8 0 12/16/1967 - 12/16/1975 Smokeless Tobacco: Never Alcohol Use Standard Drinks/Week Comments Yes 4 (1 standard drink = 0.6 oz pur e alcohol) x40 years Sex and Gender Information Value Date Recorded Sex Assigned at Not on file Legal Sex Male 10:14 PM CDT Gender Identity Not on file Sexual Orientation Not on file Plan of Treatment Health Maintenance Due Date Last Done Comments Hepatitis C Virus (HCV) Screening 1950 TdaP Immunization 1950 Cologuard 12/30/1995 Immunochemical Fecal Occult Blood 12/30/1995 Pneumococcal Immunization (5 0+ years) (1 of 1 - PCV) 2000 Zoster Immunization (1 of 2) 2000 Medicare Initial AWV [id number] 12/25/2016 Colonoscopy 12/07/2021 12/07/2016 Colorectal Cancer Screening 12/07/2021 Influenza Immunization (#1) 2025 SARS-COV-2 Immunization ( season) 2025 Respiratory Syncytial Virus (RSV) Immunization (Adult) (1 - 1-dose 75+ series) 2025 Hepatitis B Immunization Aged Out No longer eligible based on patient's age to complete this topic Human Papillomavirus (HPV) Immunization Aged Out No longer eligible b ased on patient's age to complete this topic Meningococcal Immunization (ACWY) Aged Out No longer eligible based on patient's age to complete this topic Rotavirus Immunization Aged Out No lo nger eligible based on patient's age to complete this topic Procedures Procedure Name Priority Date/Time Associated Diagnosis Comments COLONOSCOPY Routine 12/07/2016 from Last 3 Months or Most Recently Relevant to Health Maintenance Results * COLONOSCOPY (12/07/2016) Vicki Pearson MD PROCEDURE/MINOR SURGICAL O RDERABLES Final Result from Last 3 Months or Most Recently Relevant to Health Maintenance Insurance [facility] [employer]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
[2025-06-09 13:33] LABS: Prostate Specific Antigen 3.2 ng/mL (< OR = 4.0)
== END 2025-06-09 09:18 | disposition home or self-care (01) ==
LOC: ANHGOSHLAB 09:18
PROVIDERS: PCP Family Medicine; Visit Provider Student in an Organized Health Care Education/Training Program
DX: Z12.5 Encounter for screening for malignant neoplasm of prostate (principal)
CPT/HCPCS: 36415; 84153; G0103

== ENCOUNTER 2025-07-16 08:11 | Outpatient (CLI) | payer MEDICARE, SELFPAY ==
[2025-07-17 07:09] LABS: PSA, Free 0.49 ng/mL
== END 2025-07-16 08:12 | disposition home or self-care (01) ==
LOC: ANHGOSHLAB 08:12
PROVIDERS: PCP Family Medicine; Visit Provider Urology
DX: R97.20 Elevated prostate specific antigen [PSA] (principal)
CPT/HCPCS: 84153; 84154